=== PATIENT | male | born 2000 | race Caucasian/White ===

== ENCOUNTER 2023-02-26 20:25 | Emergency (ER) | payer OTHER ==
[2023-02-26] MEDS ORDERED: hydrOXYzine 25 MG TAB ONE (21:09)
[2023-02-26] MEDS ORDERED: Acetaminophen 500 MG TAB ONE (21:12)
== END 2023-02-26 22:09 | disposition home or self-care (01) ==
LOC: CSHERS 20:25
DX: F41.9 Anxiety disorder, unspecified (principal)
CPT/HCPCS: 71045; 93005